=== PATIENT | male | born 1985 | race Caucasian/White ===

== ENCOUNTER 2017-03-23 22:39 | Inpatient (IN) | payer OTHER ==
[~2017-03-23] VITALS: Ht 182.9 cm; Wt 93.7 kg
[2017-03-23 22:46] VITALS: BP 151/94; PULSE 80; RESP 21; TEMP 98.3; O2SAT 99
[2017-03-23] MEDS ORDERED: SODIUM CHLOR 0.9% 1000 ML INJ 1,000 ML IV SCH (22:53)
[2017-03-23] MEDS ORDERED: SODIUM CHLORIDE 0.9% FLUSH 10 ML FLUSH IVF PRN (23:00)
[2017-03-23] MEDS ORDERED: ceFAZolin 2 GM PREMIX 50 ML IV ONE (23:00)
[2017-03-23] MEDS ORDERED: DIPHTH/TETANUS/ACEL PERTUSSIS (BOOSTER) 0.5 ML VIAL/PFS IM ONE (23:00)
[2017-03-23] MEDS ORDERED: ONDANSETRON HCL 4 MG/2 ML VIAL IV PUSH ONE (23:00)
[2017-03-23 23:15] LABS: AUTOMATED NEUTROPHIL # 3.1 TH/MM3 (1.8-7.7); BASOPHIL % 0.3 % (0.0-2.0); EOSINOPHIL % 0.5 % (0.0-4.0); HEMATOCRIT 41.2 % (39.0-51.0); HEMO FLAGS DIFF FINAL; LYMPH % 46.3 % (9.0-44.0); LYMPHOCYTE # 3.2 TH/MM3 (1.0-4.8); MEAN CELL VOLUME 85.5 FL (80.0-100.0); MEAN CORPUSCULAR HEMOGLOBIN 29.1 PG (27.0-34.0); MONO % 7.1 % (0.0-8.0); NEUT % 45.8 % (16.0-70.0); PLATELET COUNT 279 TH/MM3 (150-450); RED BLOOD COUNT 4.81 MIL/MM3 (4.50-5.90); RED CELL DISTRIBUTION WIDTH 13.2 % (11.6-17.2); WHITE BLOOD COUNT 6.8 TH/MM3 (4.0-11.0)
[2017-03-23 23:16] LABS: I-STAT POTASSIUM 3.7 MMOL/L (3.5-4.9)
[2017-03-23 23:35] LABS: PROTHROMBIN TIME - PATIENT 10.5 SEC (9.8-11.6)
[2017-03-23] MEDS ORDERED: IOHEXOL 350 MG/ML 10 ML VIAL (for RAD DIAG) IVCONTRAST ONE (23:40)
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
[2017-03-24] MEDS ORDERED: MORPHINE SULFATE 4 MG/ML INJ IV PUSH ONE ×2 (00:30→01:15)
[2017-03-24] MEDS ORDERED: ONDANSETRON HCL 4 MG/2 ML VIAL IV PUSH ONE (00:30)
[2017-03-24] MEDS ORDERED: KETOROLAC TROMETHAMINE 30 MG/ML (IVP) VIAL IV PUSH ONE (01:15)
[2017-03-24 02:00] VITALS: BP 117/58; PULSE 78; RESP 15; TEMP 98.4; O2SAT 100
[2017-03-24] MEDS ORDERED: LACTULOSE SYRUP 20 GM/30 ML CUP PO PRN (02:45)
[2017-03-24] MEDS ORDERED: NALOXONE HCL 0.4 MG/ML AMP IV PUSH PRN (02:45)
[2017-03-24] MEDS ORDERED: ACETAMINOPHEN 325 MG TAB PO PRN (02:45)
[2017-03-24] MEDS ORDERED: SENNOSIDES 8.6 MG TAB PO PRN (02:45)
[2017-03-24] MEDS ORDERED: SODIUM CHLORIDE 0.9% FLUSH 10 ML FLUSH IV FLUSH PRN (02:45)
[2017-03-24] MEDS ORDERED: BISACODYL 10 MG SUPP RECTAL PRN (02:45)
[2017-03-24] MEDS ORDERED: MAGNESIUM HYDROXIDE SUSP 30 ML CUP PO PRN (02:45)
[2017-03-24] MEDS ORDERED: ONDANSETRON HCL 4 MG/2 ML VIAL IVP PRN (02:45)
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
[2017-03-24] MEDS: oxyCODONE/ACETAMINOPHEN 7.5 MG/325 MG TAB PO PRN ×5 (04:32→23:24)
[2017-03-24] MEDS: SODIUM CHLOR 0.9% 1000 ML INJ 1,000 ML IV SCH ×2 (04:32→14:52)
[2017-03-24 04:52] VITALS: BP 128/76; PULSE 72; RESP 18; TEMP 97.7; O2SAT 95
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
[2017-03-24 07:56] VITALS: BP 122/65; PULSE 79; RESP 20; TEMP 97.7; O2SAT 97
[2017-03-24] MEDS: DOCUSATE SODIUM 50 MG/SENNA 8.6 MG TAB PO SCH ×2 (09:00→21:17)
[2017-03-24] MEDS: SODIUM CHLORIDE 0.9% FLUSH 10 ML FLUSH IV FLUSH SCH ×2 (09:00→21:17)
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
[2017-03-24 12:00] VITALS: BP 123/68; PULSE 67; RESP 21; TEMP 98; O2SAT 96
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
[2017-03-24 16:00] VITALS: BP 114/63; PULSE 61; RESP 20; TEMP 97.9; O2SAT 97
[2017-03-24 17:03] LABS: BICARBONATE 26.1 MEQ/L (21.0-32.0)
[2017-03-24 17:21] LABS: POTASSIUM 4.3 MEQ/L (3.5-5.1)
[2017-03-24 20:00] VITALS: BP 117/63; PULSE 76; RESP 17; TEMP 99.1; O2SAT 98
[2017-03-25] VITALS: BP 116/61; PULSE 73; RESP 17; TEMP 98.6; O2SAT 95
[2017-03-25] MEDS: SODIUM CHLOR 0.9% 1000 ML INJ 1,000 ML IV SCH ×2 (00:24→09:32)
[2017-03-25 04:00] VITALS: BP 116/70; PULSE 73; RESP 18; TEMP 98.5; O2SAT 97
[2017-03-25] MEDS: oxyCODONE/ACETAMINOPHEN 7.5 MG/325 MG TAB PO PRN ×3 (05:15→15:02)
[2017-03-25 07:23] LABS: AUTOMATED NEUTROPHIL # 4.2 TH/MM3 (1.8-7.7); BASOPHIL % 0.1 % (0.0-2.0); EOSINOPHIL % 0.3 % (0.0-4.0); HEMATOCRIT 37.6 % (39.0-51.0); HEMO FLAGS DIFF FINAL; LYMPH % 24.7 % (9.0-44.0); LYMPHOCYTE # 1.6 TH/MM3 (1.0-4.8); MEAN CELL VOLUME 86.9 FL (80.0-100.0); MEAN CORPUSCULAR HEMOGLOBIN 30.5 PG (27.0-34.0); MEAN CORPUSCULAR HGB CONC 35.1 % (32.0-36.0); MONO % 8.8 % (0.0-8.0); NEUT % 66.1 % (16.0-70.0); PLATELET COUNT 201 TH/MM3 (150-450); RED BLOOD COUNT 4.32 MIL/MM3 (4.50-5.90); RED CELL DISTRIBUTION WIDTH 13.5 % (11.6-17.2); WHITE BLOOD COUNT 6.4 TH/MM3 (4.0-11.0)
[2017-03-25 07:50] LABS: BICARBONATE 25.8 MEQ/L (21.0-32.0); POTASSIUM 3.6 MEQ/L (3.5-5.1)
[2017-03-25 08:00] VITALS: BP 128/68; PULSE 78; RESP 19; TEMP 98.9; O2SAT 96
[2017-03-25] MEDS: SODIUM CHLORIDE 0.9% FLUSH 10 ML FLUSH IV FLUSH SCH (09:00)
[2017-03-25] MEDS: DOCUSATE SODIUM 50 MG/SENNA 8.6 MG TAB PO SCH (09:31)
[2017-03-25] MEDS ORDERED: OXYC1TAB35 PO (09:52)
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
--- NOTE | 2017-03-25 09:53 | HHI.FF ---
Face to Face Verification Diagnosis: (1) Injury of right great toe Home Health Nursing Order: Wound care and dressing changes Nursing assessment with vital signs Instructions: Wound vac; change Friday/Friday/Friday I have seen patient Andrew Stevens on 03/25/17. My clinical findings support the need for the requested home health care services because: Limited ability to care for self I certify that my clinical findings support that this patient is homebound because: Unsafe to leave home unassisted Omar Rodriguez MD Mar 25, 2017 09:53
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
[2017-03-25 12:00] VITALS: BP 116/63; PULSE 73; RESP 19; TEMP 98.6; O2SAT 96
[2017-03-25 16:00] VITALS: BP 126/82; PULSE 75; RESP 20; TEMP 96.9; O2SAT 97
== END 2017-03-25 16:49 | disposition home health service (06) | DRG 605 ==
LOC: NEPC 22:39 → NEDA 03-24 02:14 → N07A 03-24 04:28
PROVIDERS: ADMIT Family Medicine; ATTEND Family Medicine
PROC: 2W1SX6Z Compression of Right Foot using Pressure Dressing (ICD-10-PCS; principal; 2017-03-24)
DX: S91.301A Unspecified open wound, right foot, initial encounter (principal); S22.31XA Fracture of one rib, right side, initial encounter for closed fracture; S40.811A Abrasion of right upper arm, initial encounter; F17.290 Nicotine dependence, other tobacco product, uncomplicated; S00.91XA Abrasion of unspecified part of head, initial encounter; S50.812A Abrasion of left forearm, initial encounter; S80.811A Abrasion, right lower leg, initial encounter; V29.88XA Motorcycle rider (driver) (passenger) injured in other specified transport accidents, initial encounter; Y93.89 Activity, other specified; Y92.488 Other paved roadways as the place of occurrence of the external cause; R40.2410 Glasgow coma scale score 13-15, unspecified time
CPT/HCPCS: 70450; 71010; 71260; 72125; 72128; 73030; 73564; 73630; 74177; 80048; 82435; 82565; 82947; 84132; 84295; 84520; 85025; 85610; 85730; 86850; 86900; 86901; 90471; 90715; 94150; 96365; 96375; 96376; J0690; J1885; J2270; J2405; J7030; Q9967